=== PATIENT | male | born 1955 | race Caucasian/White ===

== ENCOUNTER 2021-12-10 22:51 | Emergency (ER) | payer MEDICAID ==
[~2021-12-10] VITALS: Ht 188 cm; Wt 68.4 kg
[2021-12-10] MEDS ORDERED: IV NORMAL SALINE 1000ML BAG 1,000 ML IV ONE (23:15)
[2021-12-10] MEDS ORDERED: PANTOPRAZOLE IV PUSH 40 MG VIAL. IVP ONE (23:15)
[2021-12-10] MEDS ORDERED: TRANEXAMIC ACID in NS IVPB 50 ML INJ ONE (23:16)
[2021-12-10 23:26] LABS: BASO % 0 % (0-3); EOS % 0 % (0-3); HEMOGLOBIN 12.5 g/dL (13.0-17.5); LYMPH # 1.1 x10^3/uL (1.0-4.8); LYMPH % 7 % (24-48); MEAN CORPUSCULAR HEMOGLOBIN 29 pg (25-35); MEAN CORPUSCULAR HGB CONC 33 g/dL (31-37); MEAN CORPUSCULAR VOLUME 88 fL (79-100); MONO # 1.8 x10^3/uL (0.0-1.1); MONO % 12 % (0-9); NEUT # 11.8 x10^3/uL (1.8-7.7); NEUT % 80 % (31-73); PLATELET COUNT 280 x10^3/uL (140-400); RED BLOOD COUNT 4.31 x10^6/uL (4.30-5.70); RED CELL DISTRIBUTION WIDTH 19.1 % (11.5-14.5); WHITE BLOOD COUNT 14.7 x10^3/uL (4.0-11.0)
[2021-12-10 23:28] LABS: PROTHROMBIN TIME PATIENT 14.3 SEC (11.7-14.0)
[2021-12-10] MEDS ORDERED: PANTOPRAZOLE SODIUM IV DRIP 80 MG in IV NORMAL SALINE 100ML 100 ML IV SCH (23:30)
[2021-12-10] MEDS ORDERED: OCTREOTIDE 100 MCG/ML VIAL IV ONE (23:30)
[2021-12-10] MEDS ORDERED: OCTREOTIDE 500 MCG in IV NORMAL SALINE 100ML 100 ML IV PRN (23:30)
[2021-12-10 23:31] LABS: CALCIUM 8.4 mg/dL (8.5-10.1); CREATININE 1.8 mg/dL (0.7-1.3); GFR 38.2; POTASSIUM 4.2 mmol/L (3.5-5.1)
[2021-12-10 23:39] LABS: ALBUMIN 2.1 g/dL (3.4-5.0); ALBUMIN/GLOBULIN RATIO 0.4 (1.0-1.7); TOTAL BILIRUBIN 0.6 mg/dL (0.2-1.0); TOTAL PROTEIN 7.3 g/dL (6.4-8.2)
--- NOTE | 2021-12-10 23:50 | PHYS DOC ---
Past Medical History Past Surgical History: Other Additional Past Surgical Histo: TRACH, G-TUBE Adult General Chief Complaint Chief Complaint: HEMATEMESIS/VOMITING BLOOD HPI HPI The patient is a 66-year-old male with a history of schizoaffective disorder. He is evidently post cardiac arrest (October 2021, [facility], unclear reasons). He has a tracheostomy and a PEG tube and is not responsive at baseline. He is a full code. Review of his medications reveals that he is not on any blood thinners aside from a daily baby aspirin. Mr. Cee presents from his [facility] for evaluation of large volume bright red hematemesis. Unclear when this started or how long it has been going on. Hypotensive on scene and during transport via EMS and upon arrival here. Tachycardic to 140s on arrival. Diminished peripheral perfusion noted. Patient is not responsive and does not provide any history. No family immediately available on scene or by telephone to speak with. Patient immediately resuscitated with a liter of crystalloid, uncrossed matched emergency blood and FFP. A gram of TXA has also been given. Patient's tracheostomy has been suctioned and a large amount of clot has been removed. He has been oropharyngeal he suctioned as well, with improvement in work of breathing and oxygen saturation. Protonix bolus given and drip started. Octr eotide bolus given and drip started (given lack of clarity as to source for patient's bleeding, alcohol abuse history, etc.). Vital signs are stabilizing with all of the above interventions. Case discussed in detail with Dr. Flor of [facility] gastroenterology who advises transfer to a higher level of care for possible ENT involvement in the case as there is a lack of clarity as to whether large-volume hematemesis is due to esophageal/tracheostomy-related bleeding versus upper GI bleed. Attempted to identify a transfer target for the patient and many facilities are on high-volume but [facility] is open to transfers and agreeable to accept the patient. Review of Systems Review of Systems Unable to obtain secondary to unresponsive patient. Current Medications Current Medications Current Medications Medications (Trade) Dose Ordered Sig/Canid Start Time Stop Time Status Last Admin Dose Admin Octreotide Acetate 500 mcg/ Sodium Chloride 101 ml @ 10.1 mls/hr CONT PRN 12/10/21 23:30 12/10/21 23:49 10.1 MLS/HR Octreotide Acetate (SandoSTATIN) 50 mcg 1X ONCE 12/10/21 23:30 12/10/21 23:31 DC 12/10/21 23:47 50 MCG Pantoprazole Sodium (PROTONIX VIAL for IV PUSH) 80 mg 1X ONCE 12/10/21 23:15 12/10/21 23:16 DC 12/10/21 23:35 80 MG Pantoprazole Sodium 80 mg/ Sodium Chloride 100 ml @ 10 mls/hr Q10H 12/10/21 23:30 12/10/21 23:40 10 MLS/HR Sodium Chloride 1,000 ml @ 1,000 mls/hr 1X ONCE 12/10/21 23:15 12/11/21 00:14 DC 12/10/21 23:52 1,000 MLS/HR Tranexamic Acid 50 ml @ 275 mls/hr 1X PERIOP ONCE 12/10/21 23:16 12/10/21 23:26 DC 12/10/21 23:43 275 MLS/HR Allergies Allergies Allergies Coded Allergies Type Severity Reaction Last Updated Verified levofloxacin Allergy Intermediate 12/10/21 Yes menthol Allergy Intermediate 12/10/21 Yes Physical Exam Physical Exam Elderly, cachectic, chronically ill-appearing male appearing acutely ill and in severe distress. Actively vomiting blood. Head is normocephalic and atraumatic. Temporal wasting. Neck is supple. Tracheostomy site without active bleeding around the site, erythema, warmth or swelling. Oropharynx is tacky with red blood and clot noted to the posterior oropharynx which we are actively suctioning. Lungs are clear to auscultation at all stations. There is a normal S1 and S2 without rubs or gallops and capillary refill is delayed, about 4 seconds. Abdomen is soft and nondistended. Skin is cool and dry. Psychiatrically, the patient cannot be assessed secondary to obtundation (apparently baseline for him). Neurologically, GCS of 6 ([id number]). Current Patient Data Vital Signs Vital Signs Date Time Temp Pulse Resp B/P (MAP) Pulse Ox O2 Delivery O2 Flow Rate FiO2 12/10/21 23:35 98 Ventilator 12/10/21 22:51 98.2 145 32 116/64 (81) 98.2 Lab Values Laboratory Tests Test 12/10/21 23:05 12/10/21 23:45 White Blood Count 14.7 x10^3/uL (4.0-11.0) H Red Blood Count 4.31 x10^6/uL (4.30-5.70) Hemoglobin 12.5 g/dL (13.0-17.5) L Hematocrit 38.0 % (39.0-53.0) L Mean Corpuscular Volume 88 fL (79-100) Mean Corpuscular Hemoglobin 29 pg (25-35) Mean Corpuscular Hemoglobin Concent 33 g/dL (31-37) Red Cell Distribution Width 19.1 % (11.5-14.5) H Platelet Count 280 x10^3/uL (140-400) Neutrophils (%) (Auto) 80 % (31-73) H Lymphocytes (%) (Auto) 7 % (24-48) L Monocytes (%) (Auto) 12 % (0-9) H Eosinophils (%) (Auto) 0 % (0-3) Basophils (%) (Auto) 0 % (0-3) Neutrophils # (Auto) 11.8 x10^3/uL (1.8-7.7) H Lymphocytes # (Auto) 1.1 x10^3/uL (1.0-4.8) Monocytes # (Auto) 1.8 x10^3/uL (0.0-1.1) H Eosinophils # (Auto) 0.0 x10^3/uL (0.0-0.7) Basophils # (Auto) 0.0 x10^3/uL (0.0-0.2) Prothrombin Time 14.3 SEC (11.7-14.0) H Prothrombin Time INR 1.1 (0.8-1.1) Activated Partial Thromboplast Time 18 SEC (24-38) L Sodium Level 151 mmol/L (136-145) H Potassium Level 4.2 mmol/L (3.5-5.1) Chloride Level 115 mmol/L (98-107) H Carbon Dioxide Level 24 mmol/L (21-32) Anion Gap 12 (6-14) Blood Urea Nitrogen 59 mg/dL (8-26) H Creatinine 1.8 mg/dL (0.7-1.3) H Estimated GFR (Cockcroft-Gault) 38.2 BUN/Creatinine Ratio 33 (6-20) H Glucose Level 197 mg/dL (70-99) H Calcium Level 8.4 mg/dL (8.5-10.1) L Total Bilirubin 0.6 mg/dL (0.2-1.0) Aspartate Amino Transferase (AST) 23 U/L (15-37) Alanine Aminotransferase (ALT) 48 U/L (16-63) Alkaline Phosphatase 97 U/L (46-116) Troponin I High Sensitivity 57 ng/L (4-75) Total Protein 7.3 g/dL (6.4-8.2) Albumin 2.1 g/dL (3.4-5.0) L Albumin/Globulin Ratio 0.4 (1.0-1.7) L O2 Saturation 100 % (92-99) H Arterial Blood pH 7.43 (7.35-7.45) Arterial Blood pCO2 at Patient Temp 35 mmHg (35-46) Arterial Blood pO2 at Patient Temp 378 mmHg (65-108) H Arterial Blood HCO3 23 mmol/L (21-28) Arterial Blood Base Excess -1 mmol/L (-3-3) FiO2 100 Laboratory Tests 12/10/21 23:05 Laboratory Tests 12/10/21 23:05 EKG EKG Sinus rhythm, rate 127, no acute ST elevation or depression, MN 124, QRS 78, QTc 394, EP interpretation. Nonischemic tracing, intervals appropriate. Radiology/Procedures Radiology/Procedures Exam: Chest one view INDICATION: Massive hematemesis TECHNIQUE: Frontal view of the chest Comparisons: None FINDINGS: Subtle patchy airspace disease at the lung bases bilaterally. No pleural effusion. Heart size is normal. Pulmonary vessels are within normal limits. IMPRESSION: Subtle patchy bibasilar airspace disease may be infectious or inflammatory in etiology. Electronically signed by: Sanchez Thornton MD (12/10/2021 11:47 PM) [facility] DICTATED and SIGNED BY: SANCHEZ THORNTON MD DATE: 12/10/21 0990 Course & Med Decision Making Course & Med Decision Making Graciously accepted in transfer to [facility] for further inpatient care by intensiv ist Dr. Pagan. Patient's gross hematemesis appears to resolved. Saturating 100% on the ventilator at modest settings, BP and HR much more appropriate. Stabilized for transfer. Note: sisters are joint DPOAs and sister Verenice can be reached at [phone]. Critical care time today was 75 minutes. Dragon Disclaimer Dragon Disclaimer This electronic medical record was generated, in whole or in part, using a voice recognition dictation system. Departure Departure Impression: Primary Impression: Hematemesis Additional Impressions: Hemorrhagic shock Hypernatremia Acute renal insufficiency Disposition: 02 SHORT TERM HOSPITAL Referrals: NO PCP (PCP) Problem Qualifiers Primary Impression: Hematemesis Nausea presence: unspecified Qualified Codes: K92.0 - Hematemesis BART NARVAEZ MD Dec 10, 2021 23:50
[2021-12-10 23:52] LABS: BASE EXCESS ABG -1 mmol/L (-3-3); HCO3 ABG 23 mmol/L (21-28); PCO2 ABG 35 mmHg (35-46); PO2 ABG 378 mmHg (65-108); SAT O2 ABG 100 % (92-99)
[2021-12-10 23:54] LABS: FIO2 ABG 100
[2021-12-11] MEDS ORDERED: NOREPINEPHRINE VIAL 8 MG in IV DEXTROSE 5% 250 ML IV ONE (01:00)
[2021-12-11 01:33] VITALS: BP 103/76
[2021-12-11 01:38] VITALS: BP_SYST 101; BP_SYST 103; BP_DIAS 68; BP_DIAS 76
--- NOTE | 2021-12-11 07:20 | EKG ---
[facility] [address] [place] [address] Test Date: 2021-12-10 Test Time: 23:27:32 Pat Name: CAMERON BACON Department: Room: Gender: M [employer] Operator: : [id number] Requested By: BART NARVAEZ Order Number: [id number] Reading MD: Measurements Intervals [place] Rate: 127 P: 66 VT: 124 QRS: 9 QRSD: 78 T: 60 QT: 268 QTc: 394 Interpretive Statements SINUS TACHYCARDIA LOW LIMB LEAD VOLTAGE NO SPECIFIC ECG ABNORMALITIES RI6.02 No previous ECG available for comparison
== END 2021-12-11 01:38 | disposition short-term general hospital (02) ==
LOC: ER 22:51
DX: K92.0 Hematemesis (principal); R57.8 Other shock; E87.0 Hyperosmolality and hypernatremia; Z20.822 Contact with and (suspected) exposure to COVID-19; N28.9 Disorder of kidney and ureter, unspecified; F25.9 Schizoaffective disorder, unspecified; Z93.0 Tracheostomy status; Z88.1 Allergy status to other antibiotic agents; Z88.8 Allergy status to other drugs, medicaments and biological substances
CPT/HCPCS: 31720; 36415; 36430; 36600; 71045; 80053; 82805; 84484; 85025; 85610; 85730; 86850; 86900; 86901; 86920; 86927; 87426; 93005; 94760; 96365; 96368; 96375; 99291; 99292; C9113; C9803; J2354; J7030; P9016; P9017; U0003; 94002